=== PATIENT | female | born 1960 | race Caucasian/White ===

== ENCOUNTER 2020-08-10 06:17 | Emergency (ER) | payer MEDICAID ==
[~2020-08-10] VITALS: Ht 160 cm; Wt 59.0 kg
[2020-08-10 06:25] VITALS: BP_SYST 113
--- NOTE | 2020-08-10 06:35 | NUR ---
Patient to ER bed 8 for evaluation. Side rails up.
--- NOTE | 2020-08-10 06:38 | NUR ---
PT PRESENTS FROM HOME BIB SON. AROUND 0600 PT WAS OUTSIDE WALKING HER DOG, REPORTS THAT SHE TRIPPED AND FELL FOWARD HITTING RIGHT SIDE OF FACE, RIGHT HAND/WRIST, LEFT KNEE AND LEFT HAND ON [place]. DENIES ANY LOSS OF CONSCIOUSNESS. ABRASIONS TO LEFT KNEE AND HAND. HX OF MS, ASTHMA AND HYPOTHYROID. AAOX4, V/S STABLE
--- NOTE | 2020-08-10 06:40 | NUR ---
DR. SCHOFIELD AT THE BEDSIDE EVALUATING PT
--- NOTE | 2020-08-10 06:57 | NUR ---
PT MEDICATED WITH NORCO 5/325MG PER MD ORDER
[2020-08-10] MEDS ORDERED: HYDROcodone/ACETAMIN 5-325 MG TAB (NORCO/ VICODIN) PO ONE (07:00)
--- NOTE | 2020-08-10 07:03 | NUR ---
PORTABLE X-RAY AT THE BEDSIDE
--- NOTE | 2020-08-10 07:18 | NUR ---
REPORT GIVEN TO AVRIL RAY FOR CONTINUING CARE
--- NOTE | 2020-08-10 07:22 | NUR ---
Pt alert and oriented. VSS.
--- NOTE | 2020-08-10 08:00 | NUR ---
Ulnar splint applied. CMS+.
--- NOTE | 2020-08-10 08:05 | NUR ---
Patient given written and verbal discharge instructions and verbalizes understanding. ER MD discussed with patient the results and treatment provided. Patient in stable condition. Rx of Wendel and motrin given. Patient educated on pain management and to follow up with PMD. Pain Scale 2/10. Opportunity for questions provided and answered. Medication side effect fact sheet provided.
[2020-08-10 08:38] VITALS: BP_SYST 113
== END 2020-08-10 08:05 | disposition home or self-care (01) ==
LOC: SED 06:17
DX: S62.316A Displaced fracture of base of fifth metacarpal bone, right hand, initial encounter for closed fracture (principal); J45.909 Unspecified asthma, uncomplicated; K21.9 Gastro-esophageal reflux disease without esophagitis; W18.39XA Other fall on same level, initial encounter; Y93.01 Activity, walking, marching and hiking; Y92.89 Other specified places as the place of occurrence of the external cause; Y99.8 Other external cause status
CPT/HCPCS: 73564; 99284

== ENCOUNTER 2021-02-01 21:19 | Emergency (ER) | payer MEDICAID ==
[~2021-02-01] VITALS: Ht 160 cm; Wt 57.6 kg
[2021-02-01 21:20] VITALS: BP_SYST 126
[2021-02-01] MEDS ORDERED: NAPR-690 PO (22:49)
[2021-02-01 23:00] VITALS: BP_SYST 126
== END 2021-02-01 23:00 | disposition home or self-care (01) ==
LOC: SED 21:19
DX: S62.635A Displaced fracture of distal phalanx of left ring finger, initial encounter for closed fracture (principal); K21.9 Gastro-esophageal reflux disease without esophagitis; J45.909 Unspecified asthma, uncomplicated; X50.9XXA Other and unspecified overexertion or strenuous movements or postures, initial encounter; Y93.89 Activity, other specified; Y92.89 Other specified places as the place of occurrence of the external cause; Y99.8 Other external cause status
CPT/HCPCS: 73140-TC; 99283

== ENCOUNTER 2021-12-21 10:30 | Emergency (ER) | payer MEDICAID ==
[~2021-12-21] VITALS: Ht 162.6 cm; Wt 57.6 kg
[~2021-12-21 10:30] MED LIST: NAPR-690 PO
[2021-12-21 11:00] VITALS: BP_SYST 147
--- NOTE | 2021-12-21 11:26 | NUR ---
Patient to ER bed 07 to gown for evaluation. Side rails up.
--- NOTE | 2021-12-21 11:28 | NUR ---
Pt brought by self, A&Ox4, pt presents to ER with LFA pain, R hand pain after falling 2 days ago, skin pink and warm, cap refill <3, respirations even and unlabored, cap refill <3.
--- NOTE | 2021-12-21 11:29 | NUR ---
Dr Griffin evaluating patient at bedside
[2021-12-21 12:29] VITALS: BP_SYST 147
--- NOTE | 2021-12-21 12:30 | NUR ---
Patient given written and verbal discharge instructions and verbalizes understanding. ER MD discussed with patient the results and treatment provided. Patient in stable condition. ID arm band removed. No Rx given. Patient educated on pain management and to follow up with PMD. Pain Scale 2/10 . Opportunity for questions provided and answered. Medication side effect fact sheet provided.
== END 2021-12-21 11:00 | disposition home or self-care (01) ==
LOC: SED 10:30
DX: S60.212A Contusion of left wrist, initial encounter (principal); S60.222A Contusion of left hand, initial encounter; K21.9 Gastro-esophageal reflux disease without esophagitis; J45.909 Unspecified asthma, uncomplicated; Z79.899 Other long term (current) drug therapy; W18.39XA Other fall on same level, initial encounter; Y93.89 Activity, other specified; Y92.89 Other specified places as the place of occurrence of the external cause; Y99.8 Other external cause status
CPT/HCPCS: 99284